=== PATIENT | male | born 1970 | race Asian ===

== ENCOUNTER 2021-02-27 22:04 | Emergency (ER) | payer MEDICAID ==
[~2021-02-27] VITALS: Ht 165.1 cm; Wt 51.5 kg
--- NOTE | 2021-02-27 23:08 | NUR ---
INITIAL PT CONTACT. PT PRESENTS TO ED VIA EMS C/O SOB, DIZZINESS AND WEAKNESS WORSENING SINCE DIALYSIS YESTERDAY, "I ALSO HAVE ARTHRITIS PAIN IN BOTH OF MY KNEES." NO ADDITIONAL COMPLAINTS AT THIS TIME. PT SITTING UPRIGHT ON [place]ILK[facility] VSS. PT PLACED ON CONTINUOUS MONITORING. CALL LIGHT AND PERSONAL BELONGINGS WITHIN REACH. AWAITING ERP AT THIS TIME.
[2021-02-28 00:17] LABS: BASOPHILS % (AUTO) 1 % (0-1); EOSINOPHILS % (AUTO) 2 % (1-7); LYMPHOCYTES % (AUTO) 16 % (22-44); MEAN CORPUSCULAR HEMOGLOBIN 28.8 pg (27.5-34.5); MEAN CORPUSCULAR HGB CONC 32.5 g/dL (33.2-36.2); MEAN PLATELET VOLUME 7.7 fL (7.4-10.4); MONOCYTES % (AUTO) 11 % (2-9); NEUTROPHILS % (AUTO) 69 % (42-75); PLATELET COUNT 291 x10^3/uL (130-400); RED BLOOD COUNT 3.41 x10^6/uL (4.38-5.82); RED CELL DISTRIBUTION WIDTH 19.6 % (9.4-14.8)
[2021-02-28 00:27] LABS: ALANINE AMINOTRANSFERASE 44 U/L (12-78); ALBUMIN 3.9 g/dL (3.4-5.0); ANION GAP 7 mmol/L (5-15); CALCIUM 9.6 mg/dL (8.5-10.1); CHLORIDE 94 mmol/L (98-107); CREATININE 8.01 mg/dL (0.7-1.3)
[2021-02-28 00:31] LABS: ALKALINE PHOSPHATASE 368 U/L (45-117); BILIRUBIN,TOTAL 0.7 mg/dL (0.2-1.0); TOTAL PROTEIN 9.2 g/dL (6.4-8.2); TROPONIN I < 0.015 ng/mL (0.000-0.045)
--- NOTE | 2021-02-28 01:02 | NUR ---
report to Maddi HAINES
--- NOTE | 2021-02-28 02:25 | NUR ---
Patient given discharge instructions and they have confirmed that they understand the instructions. Patient ambulatory with steady gait.
[2021-02-28 02:28] VITALS: BP 99/52
== END 2021-02-28 02:29 | disposition home or self-care (01) ==
LOC: ED 23:10
DX: R05 Cough (principal); R06.00 Dyspnea, unspecified; N18.4 Chronic kidney disease, stage 4 (severe); R94.31 Abnormal electrocardiogram [ECG] [EKG]; E11.22 Type 2 diabetes mellitus with diabetic chronic kidney disease; Z87.891 Personal history of nicotine dependence
CPT/HCPCS: 36415; 71045; 80053; 84484; 85025; 93005; 99285

== ENCOUNTER 2021-03-11 22:07 | Emergency (ER) | payer MEDICAID ==
[~2021-03-11] VITALS: Ht 170.2 cm; Wt 52.0 kg
[2021-03-11 23:36] LABS: BASOPHILS % (AUTO) 1 % (0-1); EOSINOPHILS % (AUTO) 3 % (1-7); LYMPHOCYTES % (AUTO) 14 % (22-44); MEAN CORPUSCULAR HEMOGLOBIN 28.1 pg (27.5-34.5); MEAN PLATELET VOLUME 8.4 fL (7.4-10.4); MONOCYTES % (AUTO) 11 % (2-9); NEUTROPHILS % (AUTO) 72 % (42-75); PLATELET COUNT 200 x10^3/uL (130-400); RED BLOOD COUNT 3.86 x10^6/uL (4.38-5.82)
[2021-03-11 23:39] LABS: ALBUMIN 3.9 g/dL (3.4-5.0); CALCIUM 9.8 mg/dL (8.5-10.1)
[2021-03-11 23:43] LABS: TROPONIN I < 0.015 ng/mL (0.000-0.045)
[2021-03-11 23:58] LABS: ANION GAP 14 mmol/L (5-15); CHLORIDE 96 mmol/L (98-107)
[2021-03-12 01:03] VITALS: BP 142/81
== END 2021-03-12 01:15 | disposition home or self-care (01) ==
LOC: ED 22:30
DX: R06.00 Dyspnea, unspecified (principal); E11.22 Type 2 diabetes mellitus with diabetic chronic kidney disease; N18.6 End stage renal disease; Z99.2 Dependence on renal dialysis; R94.31 Abnormal electrocardiogram [ECG] [EKG]
CPT/HCPCS: 36415; 71045; 80048; 82040; 83880; 84484; 85025; 93005; 99285

== ENCOUNTER 2021-04-13 15:49 | Inpatient (IN) | payer MEDICAID ==
[~2021-04-13] VITALS: Ht 170.2 cm; Wt 54.9 kg
--- NOTE | 2021-04-13 16:26 | NUR ---
BIB EMS FOR SOB, WEAKNESS X 2 DAYS. PT IS A POOR HISTORIAN. PT NOT TALKING TO STAFF TO [id number] QUESTIONS. PT IN BED IN GOWN WITH [employer]INEE, SPO2, BP Q 30 MIN, SIDE RAILS UP X2, CALL LIGHT IN REACH. EKG DONE. PT COUT NOT REMEBER DOES AND HOME MEDS. AWATING MD TO SEE.
[2021-04-13] MEDS ORDERED: AMLO-211 PO (16:31)
[2021-04-13] MEDS ORDERED: ALLO300T PO (16:31)
[2021-04-13 16:52] LABS: BASOPHILS % (AUTO) 1 % (0-1); EOSINOPHILS % (AUTO) 2 % (1-7); LYMPHOCYTES % (AUTO) 7 % (22-44); MEAN CORPUSCULAR HEMOGLOBIN 27.5 pg (27.5-34.5); MEAN CORPUSCULAR HGB CONC 31.9 g/dL (33.2-36.2); MEAN PLATELET VOLUME 7.7 fL (7.4-10.4); MONOCYTES % (AUTO) 10 % (2-9); NEUTROPHILS % (AUTO) 80 % (42-75); PLATELET COUNT 252 x10^3/uL (130-400); RED BLOOD COUNT 3.34 x10^6/uL (4.38-5.82); RED CELL DISTRIBUTION WIDTH 21.1 % (9.4-14.8)
[2021-04-13 17:18] LABS: ANION GAP 17 mmol/L (5-15); CALCIUM 9.7 mg/dL (8.5-10.1); CHLORIDE 101 mmol/L (98-107)
[2021-04-13 17:19] LABS: ALANINE AMINOTRANSFERASE 77 U/L (12-78); ALBUMIN 3.7 g/dL (3.4-5.0); ALKALINE PHOSPHATASE 344 U/L (45-117); BILIRUBIN,TOTAL 0.6 mg/dL (0.2-1.0); TOTAL PROTEIN 8.2 g/dL (6.4-8.2)
[2021-04-13] MEDS ORDERED: DEXTROSE 50%, 50ML SYRINGE ONE (18:24)
[2021-04-13] MEDS ORDERED: SODIUM BICARBONATE 1 MEQ/ML, 50ML VIAL ONE (18:24)
[2021-04-13] MEDS ORDERED: INSULIN LISPRO SINGLE DOSE, ER SQ-INSULIN ONE (18:26)
[2021-04-13 18:28] LABS: HYPOCHROMIA 1+; MICROCYTOSIS 1+; TEAR DROPS 1+
[2021-04-13 18:29] LABS: OVALOCYTES 1+; ROULEAUX 1+
[2021-04-13] MEDS ORDERED: SODIUM BICARB 8.4%, 50ML SYRINGE IVPush ONE (18:30)
[2021-04-13] MEDS ORDERED: INSULIN REGULAR 100 UNITS/ML, 3ML VIAL IVPush ONE (18:30)
[2021-04-13] MEDS ORDERED: SODIUM ZIRCONIUM CYCLOSILICATE 10 GM PO ONE (18:30)
[2021-04-13] MEDS ORDERED: DEXTROSE 50%, 50ML SYRINGE IVPush ONE (18:30)
[2021-04-13 18:32] LABS: <PLATELET ESTIMATE> ADEQUATE; <PLT MORPHOLOGY> NORMAL PLT MORPH
--- NOTE | 2021-04-13 18:54 | NUR ---
Report from Zackary HAINES
[2021-04-13] MEDS ORDERED: MELATONIN 5 MG TABLET PO PRN (19:00)
[2021-04-13] MEDS ORDERED: HYDROmorphone 2 MG/ML, 1ML IVPush PRN (19:00)
[2021-04-13] MEDS ORDERED: ONDANSETRON 2MG/ML, 2ML IVPush PRN (19:00)
[2021-04-13] MEDS ORDERED: LABETALOL 5MG/ML, 20ML IVPush PRN (19:00)
[2021-04-13] MEDS ORDERED: POLYETHYLENE GLYCOL 17 GM PACKET PO PRN (19:00)
--- NOTE | 2021-04-13 19:52 | NUR ---
Will trading analyst-(phone number [phone]) states he will be here for pt's dialysis at 2300 and to call him with any updates.
--- NOTE | 2021-04-13 21:03 | NUR ---
Report to Trinity HAINES
[2021-04-13 21:40] VITALS: BP 168/88
[2021-04-13 21:42] VITALS: BP 168/88
[2021-04-13] MEDS: HEPARIN 5,000 UNITS/ML, 1ML SQ SCH (22:16)
[2021-04-14] MEDS: BENZONATATE 100 MG CAPSULE PO PRN ×2 (00:34→09:31)
[2021-04-14 01:17] VITALS: BP 162/93
[2021-04-14 05:37] LABS: BASOPHILS % (AUTO) 1 % (0-1); EOSINOPHILS % (AUTO) 2 % (1-7); LYMPHOCYTES % (AUTO) 8 % (22-44); MEAN CORPUSCULAR HGB CONC 32.6 g/dL (33.2-36.2); MONOCYTES % (AUTO) 7 % (2-9); NEUTROPHILS % (AUTO) 83 % (42-75); PLATELET COUNT 265 x10^3/uL (130-400); RED BLOOD COUNT 3.57 x10^6/uL (4.38-5.82); RED CELL DISTRIBUTION WIDTH 20.9 % (9.4-14.8)
[2021-04-14 05:46] LABS: ANION GAP 12 mmol/L (5-15); CALCIUM 10.1 mg/dL (8.5-10.1); CHLORIDE 102 mmol/L (98-107)
[2021-04-14] MEDS: HEPARIN 5,000 UNITS/ML, 1ML SQ SCH ×3 (05:48→21:24)
[2021-04-14 05:49] LABS: CREATININE 5.64 mg/dL (0.7-1.3)
[2021-04-14 05:50] VITALS: BP 172/91
[2021-04-14 08:49] VITALS: BP 146/85
[2021-04-14] MEDS: DIPHENHYDRAMINE 25 MG CAPSULE PO PRN ×2 (09:26→23:15)
[2021-04-14] MEDS: ACETAMINOPHEN 325 MG TABLET PO PRN ×2 (09:31→18:24)
[2021-04-14 13:18] VITALS: BP 122/70
[2021-04-14 19:50] VITALS: BP 147/77
[2021-04-15 00:46] VITALS: BP 157/80
[2021-04-15] MEDS: HEPARIN 5,000 UNITS/ML, 1ML SQ SCH ×2 (06:01→14:00)
[2021-04-15 06:25] LABS: BASOPHILS % (AUTO) 1 % (0-1); EOSINOPHILS % (AUTO) 4 % (1-7); LYMPHOCYTES % (AUTO) 11 % (22-44); MEAN CORPUSCULAR HGB CONC 32.7 g/dL (33.2-36.2); MEAN PLATELET VOLUME 7.8 fL (7.4-10.4); MONOCYTES % (AUTO) 9 % (2-9); NEUTROPHILS % (AUTO) 76 % (42-75); PLATELET COUNT 289 x10^3/uL (130-400); RED BLOOD COUNT 3.36 x10^6/uL (4.38-5.82); RED CELL DISTRIBUTION WIDTH 21.1 % (9.4-14.8)
[2021-04-15 06:29] LABS: ANION GAP 9 mmol/L (5-15); CALCIUM 9.8 mg/dL (8.5-10.1); CHLORIDE 99 mmol/L (98-107)
[2021-04-15 06:33] LABS: ALBUMIN 3.7 g/dL (3.4-5.0); CREATININE 1.53 mg/dL (0.7-1.3)
[2021-04-15 07:48] VITALS: BP 168/85
[2021-04-15] MEDS: DIPHENHYDRAMINE 25 MG CAPSULE PO PRN (11:34)
[2021-04-15] MEDS: ACETAMINOPHEN 325 MG TABLET PO PRN (11:34)
[2021-04-15] MEDS ORDERED: BENZ-17 PO (12:53)
[2021-04-15 13:19] VITALS: BP 123/79
[2021-04-15] MEDS: BENZONATATE 100 MG CAPSULE PO PRN (16:04)
== END 2021-04-15 17:37 | disposition home or self-care (01) | DRG 189 ==
LOC: ED 18:26 → EDIP 18:45 → 4EST 21:35
PROVIDERS: ADMIT Emergency Medicine; ATTEND Internal Medicine
PROC: 5A1D70Z Performance of Urinary Filtration, Intermittent, Less than 6 Hours Per Day (ICD-10-PCS; principal; 2021-04-14)
DX: J96.01 Acute respiratory failure with hypoxia (principal); J81.0 Acute pulmonary edema; N18.6 End stage renal disease; R64 Cachexia; I12.0 Hypertensive chronic kidney disease with stage 5 chronic kidney disease or end stage renal disease; E44.0 Moderate protein-calorie malnutrition; E87.1 Hypo-osmolality and hyponatremia; M10.9 Gout, unspecified; N25.0 Renal osteodystrophy; F19.10 Other psychoactive substance abuse, uncomplicated; E87.70 Fluid overload, unspecified; E87.5 Hyperkalemia; E11.22 Type 2 diabetes mellitus with diabetic chronic kidney disease; D63.1 Anemia in chronic kidney disease; E87.6 Hypokalemia; Z99.2 Dependence on renal dialysis; Z91.19 Patient's noncompliance with other medical treatment and regimen; Z91.15 Patient's noncompliance with renal dialysis
CPT/HCPCS: 36415; 71045; 80048; 80053; 80069; 83735; 83880; 84100; 85025; 93005; 96374; 96375; 99285; G0378; J1644; J1815; Q0163